=== PATIENT | male | born 1950 | race Caucasian/White ===

== ENCOUNTER 2023-08-07 15:19 | Emergency (ER) | payer MEDICARE ==
[~2023-08-07] VITALS: Ht 167.6 cm; Wt 70.4 kg
[2023-08-07 15:48] LABS: BASOPHILS # (AUTO) 0.1 X10'3 (0-0.2); BASOPHILS % (AUTO) 0.9 % (0-1); EOSINOPHILS # (AUTO) 0.1 X10'3 (0-0.9); EOSINOPHILS % (AUTO) 2.5 % (0-6); HEMATOCRIT 43.8 % (42.0-52.0); HEMOGLOBIN 14.7 g/dl (14.0-17.9); LYMPHOCYTES # (AUTO) 2.2 X10'3 (1.1-4.8); LYMPHOCYTES % (AUTO) 38.6 % (21-51); MEAN CORPUSCULAR HEMOGLOBIN 31.7 PG (27.0-31.0); MEAN CORPUSCULAR HGB CONC 33.5 g/dL (33.0-36.5); MEAN CORPUSCULAR VOLUME 94.6 FL (78-98); MEAN PLATELET VOLUME 7.7 FL (7.4-10.4); MONOCYTES # (AUTO) 0.6 X10'3 (0-0.9); MONOCYTES % (AUTO) 10.9 % (2-12); NEUTROPHILS # (AUTO) 2.7 X10'3 (1.8-7.7); NEUTROPHILS % (AUTO) 47.1 % (42-75); PLATELET COUNT 230 X10'3 (140-440); RED BLOOD COUNT 4.64 X10'6 (4.70-6.10); RED CELL DISTRIBUTION WIDTH 13.2 % (11.5-14.5); WHITE BLOOD COUNT 5.7 X10'3 (4.5-11.0)
[2023-08-07 15:58] LABS: ALANINE AMINOTRANSFERASE 25 U/L (12-78); ALBUMIN 3.5 G/DL (3.4-5.0); ALKALINE PHOSPHATASE 74 IU/L (46-116); ANION GAP 7 (8-16); ASPARTATE AMINO TRANSFERASE 25 U/L (10-37); BILIRUBIN,TOTAL 0.5 MG/DL (0.1-1.0); BLOOD UREA NITROGEN 19 MG/DL (7-18); BUN/CREATININE RATIO 21.3 (10.0-20.0); CALCIUM 9.2 MG/DL (8.5-10.1); CHLORIDE 104 MMOL/L (99-107); CREATININE 0.89 MG/DL (0.60-1.10); GLUCOSE 101 MG/DL (70-104); POTASSIUM 3.9 MMOL/L (3.5-5.1); SODIUM 139 MMOL/L (135-145); eCRCL 66 ML/MIN; eGFR 84 ML/MIN
[2023-08-07 16:06] LABS: PRO BRAIN NATRIURETIC PEPTIDE 136 PG/ML (0-125)
[2023-08-07] MEDS ORDERED: cloNIDine 0.1 mg tablet PO ONE (21:28)
[2023-08-07] MEDS ORDERED: cloNIDine 0.1 mg tablet PO SCH (21:28)
[2023-08-07 22:01] VITALS: BP 184/99; PULSE 60; RESP 17; TEMP 98; O2SAT 98
== END 2023-08-07 22:03 | disposition home or self-care (01) ==
LOC: ER 15:19
DX: R07.89 Other chest pain (principal); M54.2 Cervicalgia; Z95.5 Presence of coronary angioplasty implant and graft
CPT/HCPCS: 36415; 71045; 80053; 83880; 84484; 85025; 93005; 99285

== ENCOUNTER 2024-03-31 08:56 | Day surgery (SDC) | payer MEDICARE ==
[2024-03-30 12:16] LABS: BASOPHILS % (AUTO) 0.8 % (0-1); EOSINOPHILS # (AUTO) 0.1 X10'3 (0-0.9); EOSINOPHILS % (AUTO) 2.9 % (0-6); HEMATOCRIT 42.7 % (42.0-52.0); HEMOGLOBIN 14.5 g/dl (14.0-17.9); LYMPHOCYTES # (AUTO) 1.9 X10'3 (1.1-4.8); LYMPHOCYTES % (AUTO) 43.2 % (21-51); MEAN CORPUSCULAR HEMOGLOBIN 32.3 PG (27.0-31.0); MEAN PLATELET VOLUME 7.5 FL (7.4-10.4); MONOCYTES # (AUTO) 0.5 X10'3 (0-0.9); MONOCYTES % (AUTO) 10.9 % (2-12); NEUTROPHILS # (AUTO) 1.8 X10'3 (1.8-7.7); NEUTROPHILS % (AUTO) 42.2 % (42-75); PLATELET COUNT 209 X10'3 (140-440); RED CELL DISTRIBUTION WIDTH 13.5 % (11.5-14.5); WHITE BLOOD COUNT 4.4 X10'3 (4.5-11.0)
[2024-03-30 12:50] LABS: ALBUMIN 3.2 G/DL (3.4-5.0); ANION GAP 4 (8-16); BLOOD UREA NITROGEN 22 MG/DL (7-18); BUN/CREATININE RATIO 25.9 (10.0-20.0); CALCIUM 8.8 MG/DL (8.5-10.1); CHLORIDE 110 MMOL/L (99-107); CREATININE 0.85 MG/DL (0.60-1.10); GLUCOSE 88 MG/DL (70-104); POTASSIUM 4.5 MMOL/L (3.5-5.1); SODIUM 143 MMOL/L (135-145); eGFR 88 ML/MIN
[2024-03-30 15:23] LABS: APTT 25 SECONDS (22-32); PROTHROMBIN TIME 10.9 SECONDS (9.0-12.0)
[2024-03-31] VITALS (15 sets, daily range): BP systolic 90–176; BP diastolic 50–87; PULSE 53–68; RESP 16–17; TEMP 97.6; O2SAT 95–98
[~2024-03-31] VITALS: Ht 167.6 cm; Wt 66.0 kg
[2024-03-31] MEDS ORDERED: LISI20TA28 PO (09:28)
[2024-03-31] MEDS: diphenhydrAMINE 25mg capsule PO PRN (10:12)
[2024-03-31] MEDS: LORazepam 0.5 MG tablet PO PRN (10:14)
[2024-03-31] MEDS: normal saline 1,000 ML IV SCH (10:15)
[2024-03-31] MEDS ORDERED: verapamil 2.5 mg/ml inj IV ONE (10:43)
[2024-03-31] MEDS ORDERED: LIDOcaine 1% 30ml preserv. free vial ONE (10:43)
[2024-03-31] MEDS ORDERED: heparin 1,000unit/ml 10ml vial 10 ML ONE (10:44)
[2024-03-31] MEDS ORDERED: fentaNYL/PF 50MCG/1 ML 2ML syringe ONE (10:44)
[2024-03-31] MEDS ORDERED: midazolam 1 mg/ML 2ml injection ONE (10:44)
[2024-03-31] MEDS ORDERED: iohexol 350 MG/ML 50ML vial IV ONE ×2 (10:44→11:23)
[2024-03-31] MEDS ORDERED: iohexol 350MG/ML 100ml bottle IV ONE ×2 (10:44→11:24)
[2024-03-31] MEDS ORDERED: nitroGLYCERIN 500mcg/5mL D5W 5 ML IV ONE ×2 (10:45→11:50)
[2024-03-31] MEDS ORDERED: LIDOcaine 1% (10mg/ml) 2ml vial ONE (11:04)
[2024-03-31] MEDS ORDERED: heparin 25,000 UNIT/250ml bag 0 ML IV ONE (11:51)
[2024-03-31] MEDS ORDERED: hydrALAZINE 20mg/ml inj. IV ONE (12:09)
[2024-03-31] MEDS ORDERED: HYDROcodone/acetaminophen 10/325mg tab PO PRN ×2 (12:50→15:05)
[2024-03-31] MEDS ORDERED: HYDROcodone/acetaminophen 5mg/325mg tablet PO PRN (12:50)
[2024-03-31] MEDS: nitroGLYCERIN 0.4mg SUBLingual tab SL ONE (13:50)
[2024-03-31] MEDS ORDERED: nitroGLYCERIN 0.4mg SUBLingual tab SL PRN (14:00)
[2024-03-31] MEDS: normal saline 1000ml 1,000 ML IV SCH (14:44)
== END 2024-03-31 18:45 | disposition home or self-care (01) ==
LOC: SSTAY O 08:56
PROVIDERS: ATTEND Internal Medicine Cardiovascular Disease
DX: T82.855A Stenosis of coronary artery stent, initial encounter (principal); I25.10 Atherosclerotic heart disease of native coronary artery without angina pectoris; I49.1 Atrial premature depolarization; I25.2 Old myocardial infarction; I10 Essential (primary) hypertension; E78.5 Hyperlipidemia, unspecified; Z79.82 Long term (current) use of aspirin; Z79.899 Other long term (current) drug therapy; Z95.5 Presence of coronary angioplasty implant and graft; Z82.49 Family history of ischemic heart disease and other diseases of the circulatory system; Z80.9 Family history of malignant neoplasm, unspecified; Y71.2 Prosthetic and other implants, materials and accessory cardiovascular devices associated with adverse incidents; Y92.89 Other specified places as the place of occurrence of the external cause
CPT/HCPCS: 36415; 80048; 85025; 85610; 85730; 92943; 93005; 93458; 99152; 99153; A6258; A6402; C1725; C1751; C1769; C1894; J0360; J1644; J2001; J2250; J3010; J3490; J7030; Q0163; Q9967; Z7610; 76937; 92920; C9607